=== PATIENT | female | born 1980 | race Two or more races ===

== ENCOUNTER 2018-05-24 12:35 | Emergency (ER) | payer SELFPAY ==
[~2018-05-24] VITALS: Ht 162.6 cm; Wt 59.0 kg
[2018-05-24] MEDS ORDERED: SODIUM CHLORIDE 0.9% 1,000 ML IVB ONE (12:55)
[2018-05-24] MEDS ORDERED: ONDANSETRON HCL 4 MG/2 ML VIAL IV ONE (13:00)
[2018-05-24] MEDS ORDERED: KETOROLAC TROMETH 30 MG/ML 1ML VIAL IV ONE (13:00)
[2018-05-24 13:56] LABS: Urine Bacteria MOD /hpf (None Seen); Urine Blood 1+ /uL (Negative); Urine Specific Gravity 1.015 (1.001-1.035); Urine WBC 21 /hpf (0 - 5)
[2018-05-24 14:05] LABS: Basophils # (auto) 0.1 uL; Eosinophils # (auto) 0.1 uL; Lymphocytes # (auto) 2.6 uL; Mean Corpuscular Hgb Conc. 33.1 g/dL (32.0-36.0); Monocytes # (auto) 0.8 uL; Neutrophils # (auto) 8.1 uL; Neutrophils % (auto) 69.8 % (37.0-80.0); White Blood Cell 11.6 10^3/uL (4.4-10.8)
[2018-05-24 14:12] LABS: Basophils % (auto) 0.5 % (0.0-2.0); Eosinophils % (auto) 0.7 % (0.0-7.0); Hematocrit 43.7 % (36.0-46.0); Hemoglobin 14.5 g/dL (12.2-16.2); Lymphocytes % (auto) 22.3 % (10.0-50.0); Mean Corpuscular Hemoglobin 31.4 pg (28.0-32.0); Mean Corpuscular Volume 94.8 fL (80.0-100.0); Monocytes % (auto) 6.7 % (0.0-12.0); Nucleated Red Blood Cells % 0.1 %; Platelet Count (auto) 280 10^3/uL (140-450); Red Blood Cells 4.61 10^6/uL (4.0-5.20); Red Cell Distribution Width 13.3 % (11.8-14.3)
[2018-05-24 14:26] LABS: Albumin 3.6 g/dL (3.4-5.0); BUN/Creatinine Ratio 19.5; Calcium 8.8 mg/dL (8.5-10.1); Potassium 4.3 mmol/L (3.5-5.1)
[2018-05-24 14:29] LABS: Bilirubin, Total 0.1 mg/dL (0.2-1.0); Total Protein 7.8 g/dL (6.4-8.2)
[2018-05-24 17:21] VITALS: BP 111/75
== END 2018-05-24 17:23 | disposition home or self-care (01) ==
LOC: ER 12:48
DX: N39.0 Urinary tract infection, site not specified (principal); F17.210 Nicotine dependence, cigarettes, uncomplicated
CPT/HCPCS: 36415; 80053; 81001; 82150; 83690; 84702; 85025; 94761